=== PATIENT | male | born 1965 | race Caucasian/White ===

== ENCOUNTER 2019-05-28 17:26 | Emergency (ER) | payer BC, OTHER ==
[2019-05-28] MEDS ORDERED: SULFAMETHOX-TMP DS 800/160 TAB ONE ×2 (17:48→18:13)
== END 2019-05-28 18:34 | disposition home or self-care (01) ==
LOC: EDH 17:26
DX: L02.512 Cutaneous abscess of left hand (principal); L03.114 Cellulitis of left upper limb; F41.9 Anxiety disorder, unspecified; Z87.891 Personal history of nicotine dependence
CPT/HCPCS: 10060